=== PATIENT | female | born 1965 | race Caucasian/White ===

== ENCOUNTER 2021-05-26 16:37 | Inpatient (IN) | payer BC ==
[2021-05-26] MEDS ORDERED: HYDROmorphone 0.5 MG/0.5 ML SYRINGE IVP STA (16:58)
[2021-05-26] MEDS ORDERED: ACETAMINOPHEN IV (For NPO) 1,000 MG in EMPTY BAG 1 BAG IVPB ONE (16:58)
--- NOTE | 2021-05-26 16:58 | ED ---
General Adult HPI - General Chief complaint: Abdominal Pain Stated complaint: Abd Pain Time Seen by Provider: 05/26/21 16:50 Source: patient, EMS, RN notes reviewed, old records reviewed Mode of arrival: EMS Limitations: no limitations - History of Present Illness Initial comments: 55-year-old female, alert and well-appearing, presents to the emergency room transferred from [facility] for diverticulitis with perforation. She states that her abdominal pain started on and fever developed yesterday. She states the pain is 9 out of 10 and worse with movement. She denies any vomiting. She has a surgical history of hysterectomy and section. -: days(s) (3) Location: abdomen (right lower and mid lower) Radiation: non-radiation Severity scale (1-10): 9 Quality: sharp Consistency: constant Improves with: immobilization Worsens with: movement Associated Symptoms: fever/chills, loss of appetite - Related Data Home Medications Medication Instructions Recorded Confirmed ALPRAZolam [Xanax] 0.25 mg PO DAILY PRN 05/26/21 05/26/21 Cetirizine HCl [Zyrtec] 10 mg PO HS 05/26/21 05/26/21 FLUoxetine HCL [PROzac] 20 mg PO HS 05/26/21 05/26/21 Montelukast [Singulair] 10 mg PO HS 05/26/21 05/26/21 Allergies Allergy/AdvReac Type Severity Reaction Status Date / Time sulfabenzamide Allergy Rash/Hives Verified 05/26/21 17:29 Review of Systems ROS Statement: Those systems with pertinent positive or pertinent negative responses have been documented in the HPI. ROS Other: All systems not noted in ROS Statement are negative. Past Medical History Past Medical History: No Reported History History of Any Multi-Drug Resistant Organisms: None Reported Past Surgical History: No Surgical Hx Reported Past Psychological History: No Psychological Hx Reported Smoking Status: Never smoker Past Alcohol Use History: None Reported Past Drug Use History: None Reported General Exam Limitations: no limitations General appearance: alert, in no apparent distress Respiratory exam: Present: normal lung sounds bilaterally. Absent: respiratory distress, wheezes, rales, rhonchi, chest wall tenderness, accessory muscle use Cardiovascular Exam: Present: regular rate GI/Abdominal exam: Present: soft, tenderness (Lower abdominal), normal bowel sounds. Absent: distended Extremities exam: Present: normal capillary refill Back exam: Present: normal inspection, full ROM. Absent: tenderness, CVA tende rness (R), CVA tenderness (L), rash noted Neurological exam: Present: alert, oriented X3 Psychiatric exam: Present: normal affect, normal mood Skin exam: Present: warm, dry, normal color. Absent: cyanosis, diaphoretic, pallor Course Vital Signs 05/26/21 05/26/21 16:47 18:51 Temperature 102.3 F H 98.3 F Pulse Rate 95 Respiratory 18 Rate Blood Pressure 109/60 O2 Sat by Pulse 96 Oximetry Medical Decision Making - Medical Decision Making 55-year-old female, alert and well-appearing, presents to the emergency room transferred from [facility] for diverticulitis with perforation. She was given pain medication and Zosyn at their facility prior to transfer. I did speak with Dr. Grimaldo who accepted the admission. Patient was given additional pain medication. Vital signs are stable. Patient is resting comfortably. Disposition Clinical Impression: Diverticulitis, Bowel perforation Disposition: ADMITTED IP TO THIS [facility] Decision Date: 05/26/21 Decision Time: 17:43
[2021-05-26] MEDS ORDERED: ONDANSETRON 4 MG/2 ML VIAL IVP PRN (17:43)
[2021-05-26] MEDS ORDERED: NALOXONE 0.4 MG/ML 1 ML VIAL IV PRN (17:43)
[2021-05-26] MEDS ORDERED: HYDROmorphone 0.5 MG/0.5 ML SYRINGE IVP PRN (17:43)
--- NOTE | 2021-05-26 18:29 | XR ---
EXAMINATION TYPE: XR abdomen 1V DATE OF EXAM: 05/26/2021 6:13 PM INDICATION: Patient age:Female; 55 years old; Reason for study: ruptured diverticuli free air; COMPARISON: None. TECHNIQUE: One radiographic view of the abdomen was obtained. FINDINGS: The bowel gas pattern is nonspecific without dilated loops of small or large bowel. There i s no evidence for organomegaly or pneumoperitoneum. The osseous structures are intact. No abnormal calcifications are present. Fecal material and gas are demonstrated throughout the colon and rectum. Excreted IV contrast seen within the collecting system. Cholecystectomy clips are present. IMPRESSION: Nonspecific bowel gas pattern without radiographic evidence for acute process.
[2021-05-26] MEDS: HYDROmorphone 1 MG/ML 1 ML SYRINGE IVP PRN (20:43)
[2021-05-26] MEDS: SODIUM CHLORIDE 0.9% 1,000 ML IV SCH (20:47)
[2021-05-27] MEDS: HYDROmorphone 1 MG/ML 1 ML SYRINGE IVP PRN ×2 (02:46→11:43)
[2021-05-27] MEDS: SODIUM CHLORIDE 0.9% 1,000 ML IV SCH ×3 (04:21→18:17)
[2021-05-27] MEDS ORDERED: PIPERACILLIN-TAZOBACTAM 3.375 GM in SODIUM CHLORIDE 0.9% 100 ML IVPB ONE (10:30)
[2021-05-27] MEDS ORDERED: HYDROcodone/APAP 5-325MG 1 EACH TAB PO PRN (11:14)
[2021-05-27] MEDS ORDERED: IBUPROFEN 400 MG TAB PO PRN (11:14)
[2021-05-27] MEDS ORDERED: ACETAMINOPHEN TAB 325 MG TAB PO PRN (11:14)
--- NOTE | 2021-05-27 11:18 | P.GSHP ---
History of Present Illness H&P Date: 05/27/21 Chief Complaint: Diverticulitis 55-year-old female with a history of known diverticulosis started feeling lower abdominal discomfort and nausea on . Pain increased on Friday. She went to urgent care yesterday and was sent to the ER. CAT scan performed at outside institution shows diverticulitis with localized extraluminal air pocket consistent with perforation. Patient was transferred here. T-max 102.3 on arrival. No further fevers since then. Pain was initially 9 out of 10. Today it is down to a 3-4. She is having some intermittent loose stools. Last colonoscopy 3-4 years ago normal. - Review of Systems Comment: The patient denies any acute changes in vision or hearing, no dysphagia or odynophagia, no chest pain or shortness of breath, no dysuria or hematuria, no headache, no runny nose, no rectal bleeding or melena, no unexplained weight loss Past Medical History Past Medical History: No Reported History History of Any Multi-Drug Resistant Organisms: None Reported Past Surgical History: No Surgical Hx Reported Additional Past Anesthesia/Blood Transfusion Reaction / Comment(s): post op fever Past Psychological History: No Psychological Hx Reported Smoking Status: Never smoker Past Alcohol Use History: None Reported Past Drug Use History: None Reported Medications and Allergies Home Medications Medication Instructions Recorded Confirmed Type ALPRAZolam [Xanax] 0.25 mg PO DAILY PRN 05/26/21 05/26/21 History Cetirizine HCl [Zyrtec] 10 mg PO HS 05/26/21 05/26/21 History FLUoxetine HCL [PROzac] 20 mg PO HS 05/26/21 05/26/21 History Montelukast [Singulair] 10 mg PO HS 05/26/21 05/26/21 History Allergies Allergy/AdvReac Type Severity Reaction Status Date / Time sulfabenzamide Allergy Rash/Hives Verified 05/26/21 17:29 Surgical - Exam Vital Signs Temp Pulse Resp BP Pulse Ox 102.3 F H 95 18 109/60 96 05/26/21 16:47 05/26/21 16:47 05/26/21 16:47 05/26/21 16:47 05/26/21 16:47 Physical exam: General: Well-developed, well-nourished HEENT: Normocephalic, sclerae nonicteric Abdomen: Mild suprapubic and left lower quadrant tenderness, no rebound or guarding, nondistended Extremities: No edema Neuro: Alert and oriented Assessment and Plan (1) Diverticulitis Narrative/Plan: 55-year-old female with sigmoid diverticulitis with contained perforation. Continue to treat nonoperatively. Patient improving thus far. Continue IV antibiotics. Begin clear liquids. Repeat labs tomorrow. We'll consult hospitalist. Current Visit: Yes Status: Acute Code(s): K57.92 - DVTRCLI OF INTEST, PART UNSP, W/O PERF OR ABSCESS W/O BLEED SNOMED Code(s): 361627515
[2021-05-27] MEDS: HEPARIN SODIUM,PORCINE/PF 5,000 UNIT/0.5 ML SYRINGE SQ SCH ×2 (14:45→21:10)
[2021-05-27] MEDS: metroNIDAZOLE-NS PMX 500 MG in SALINE 1 100ML.BAG IVPB SCH ×2 (14:46→23:12)
--- NOTE | 2021-05-27 14:57 | P.CONS ---
History of Present Illness - Reason for Consult Consult date: 05/27/21 Medical management - Chief Complaint Abdominal pain - History of Present Illness Patient is a 55-year-old female with a known history of anxiety/depression, diverticulosis with history of colonoscopy about 2 years ago initially presented to [facility] with complaints of abdominal pain mainly in the lower abdomen started on . Patient has been having worsening pain and presented to ER on Friday morning. CT scan was done which showed diverticulitis with a localized extraluminal air pocket consistent with perforation. Patient was eventually transferred to [facility] for surgical evaluation. On admission patient was febrile with T-max of 102.3. Pulse ox 96% on room air and blood pressure 119/60. Laboratory data from the outside hospital was reviewed. Patient otherwise denied any complaints of chest pain or shortness of breath. No nausea vomiting or diarrhea. Denies any recent illnesses. No cough or sputum production. No leg swelling. No dysuria or hematuria. Review of Systems Constitutional: Patient denies any fever or chills . No generalized weakness or weight loss. Abdomen: Patient denied nausea vomiting and diarrhea. Patient does have lower abdominal pain. No diarrhea.. Cardiovascular: Patient denies any chest pain or short of breath no palpitations. Respiratory: patient denied any cough is from production. No shortness of breath Neurologic: Patient denied any numbness or tingling headache. Musculoskeletal: Patient denies any complaints of joint swelling or deformity. Skin: Negative Psychiatric: Negative Endocrine: No heat or cold intolerance. No recent weight gain. Genitourinary: No dysuria or hematuria. All other 14 point ROS negative except the above Past Medical History Past Medical History: No Reported History History of Any Multi-Drug Resistant Organisms: None Reported Past Surgical History: No Surgical Hx Reported Additional Past Anesthesia/Blood Transfusion Reaction / Comm: post op fever Past Psychological History: No Psychological Hx Reported Smoking Status: Never smoker Past Alcohol Use History: None Reported Past Drug Use History: None Reported Medications and Allergies Home Medications Medication Instructions Recorded Confirmed Type ALPRAZolam [Xanax] 0.25 mg PO DAILY PRN 05/26/21 05/26/21 History Cetirizine HCl [Zyrtec] 10 mg PO HS 05/26/21 05/26/21 History FLUoxetine HCL [PROzac] 20 mg PO HS 05/26/21 05/26/21 History Montelukast [Singulair] 10 mg PO HS 05/26/21 05/26/21 History Allergies Allergy/AdvReac Type Severity Reaction Status Date / Time sulfabenzamide Allergy Rash/Hives Verified 05/26/21 17:29 Physical Exam Vitals: Vital Signs Temp Pulse Pulse Resp BP BP Pulse Ox 05/27/21 10:00 97.9 F 73 18 121/71 98 05/27/21 02:00 98.1 F 74 18 99/61 96 05/26/21 20:00 98.2 F 70 18 96/58 96 05/26/21 18:51 98.3 F 05/26/21 16:47 102.3 F H 95 18 109/60 96 Intake and Output 05/26/21 05/27/21 05/27/21 22:59 06:59 14:59 Intake Total 0 Balance 0 Intake: Oral 0 Other: # Voids 2 # Bowel Movements 1 Weight 77.111 kg PHYSICAL EXAMINATION: Patient is lying in the bed comfortably, no acute distress, awake alert and oriented.. HEENT: Normocephalic. Neck is supple. Pupils reactive. Nostrils clear. Oral cavity is moist. Neck reveals no JVD, carotid bruits, or thyromegaly. CHEST EXAMINATION: Trachea is central. Symmetrical expansion. Lung lloyd clear to auscultation and percussion. CARDIAC: Normal S1, S2 with no gallops. No murmurs ABDOMEN: Soft. Bowel sounds present, mild lower abdominal tenderness. No guarding or rigidity.. No organomegaly. No abdominal bruits. Extremities: reveal no edema. No clubbing or cyanosis Neurologically awake, alert, oriented x3 with well-coordinated movements. No focal deficits noted Skin: No rash or skin lesions. Psychiatric: Coperative. Nonsuicidal Musculoskeletal: No joint swelling or deformity. Normal range of motion. Assessment and Plan Assessment: Acute diverticulitis with perforation Worsening lower abdominal pain secondary to above for the past 3 days prior to admission Diverticulosis history. Patient had a colonoscopy about 2 years ago. Anxiety/depression DVT prophylaxis with heparin subcu Plan: Patient will be continued on IV hydration and antibiotics in the form of Zosyn metronidazole. Continue with pain management and follow-up CBC and BMP. General surgery is on board. Patient is currently improving symptomatically. Will follow closely and further recommendations based on the clinical course. Thank you for your consult. Time with Patient: Greater than 30
[2021-05-27] MEDS: PIPERACILLIN-TAZOBACTAM 3.375 GM in SODIUM CHLORIDE 0.9% 100 ML IVPB SCH (16:07)
[2021-05-27] MEDS: FAMOTIDINE 20 MG/2 ML VIAL IV SCH (21:08)
[2021-05-28] MEDS: PIPERACILLIN-TAZOBACTAM 3.375 GM in SODIUM CHLORIDE 0.9% 100 ML IVPB SCH ×3 (00:31→16:07)
[2021-05-28] MEDS: SODIUM CHLORIDE 0.9% 1,000 ML IV SCH ×4 (02:37→20:42)
[2021-05-28] MEDS: HEPARIN SODIUM,PORCINE/PF 5,000 UNIT/0.5 ML SYRINGE SQ SCH ×3 (08:16→22:53)
[2021-05-28] MEDS: FAMOTIDINE 20 MG/2 ML VIAL IV SCH ×2 (09:10→20:41)
[2021-05-28] MEDS: metroNIDAZOLE-NS PMX 500 MG in SALINE 1 100ML.BAG IVPB SCH ×2 (09:11→16:07)
[2021-05-28 10:23] LABS: Anion Gap 12.7 mmol/L (10.00-18.00); Blood Urea Nitrogen 6.3 mg/dL (9.0-27.0); Calcium 8.3 mg/dL (8.7-10.3); Carbon Dioxide 19.3 mmol/L (20.0-27.5); Non-African American GFR(CKD) 97.5 (60.0-200.0); Potassium 4.1 mmol/L (3.5-5.5)
--- NOTE | 2021-05-28 12:31 | P.PN ---
<AnttoshaNettie - Last Filed: 05/28/21 12:28> Subjective Progress Note Date: 05/28/21 CHIEF COMPLAINT: Diverticulitis HISTORY OF PRESENT ILLNESS: Patient reports improvement in her abdominal pain. She describes her pain is very mild in the lower pelvic area. She has not required pain medicine. She is having bowel movements and flatus. Denies any nausea or vomiting. She would like abatement of her diet. Afebrile. CBC pending. Creatinine 0.7 PHYSICAL EXAM: VITAL SIGNS: Reviewed. GENERAL: Well-developed in no acute distress. HEENT: No sclera icterus. Extraocular movements grossly intact. Moist buccal mucosa. Head is atraumatic, normocephalic. ABDOMEN: Soft. Nondistended. Minimal tenderness in the mid lower abdominal area NEUROLOGIC: Alert and oriented. Cranial nerves II through XII grossly intact. ASSESSMENT: 1. Sigmoid diverticulitis with contained perforation PLAN: -Continue conservative management -Advance diet to full liquids -Continue IV fluids -Continue IV antibiotics -Continue pain medication as needed Physician Copyholder note has been reviewed by physician. Signing provider agrees with the documented findings, assessment, and plan of care. Objective - Vital Signs Vital signs: Vital Signs Temp 98.5 F 05/28/21 11:33 Pulse 64 05/28/21 11:33 Resp 18 05/28/21 11:33 BP 153/88 05/28/21 11:33 Pulse Ox 98 05/28/21 11:33 Intake & Output 05/27/21 05/28/21 05/28/21 18:59 06:59 18:59 Intake Total 3040 1900 Balance 3040 1900 Intake: Intake, IV Titration 1860 1340 Amount Piperacillin-Tazobactam 3 200 .375 gm In Sodium Chloride 0.9% 100 ml @ 200 mls/hr IVPB ONCE ONE Rx#:[id number] Piperacillin-Tazobactam 3 100 .375 gm In Sodium Chloride 0.9% 100 ml @ 25 mls/hr IVPB Q8HR [facility] Rx# :[id number] Sodium Chloride 0.9% 1, 1560 1140 000 ml @ 130 mls/hr IV . Q7H42M [facility] Rx#:[id number] metroNIDAZOLE-NS PMX 500 100 100 mg In Saline 1 100ml.bag @ 100 mls/hr IVPB Q8HR ANG Rx#:[id number] Oral 1180 560 Other: Voiding Method Toilet Toilet # Voids 3 # Bowel Movements 1 - Labs CBC & Chem 7: 05/28/21 06:03 Labs: Abnormal Lab Results - Last 24 Hours (Table) 05/28/21 Range/Units 06:03 Carbon Dioxide 19.3 L (20.0-27.5) mmol/L BUN 6.3 L (9.0-27.0) mg/dL BUN/Creatinine Ratio 9.00 L (12.00-20.00) Ratio Calcium 8.3 L (8.7-10.3) mg/dL <Ervin Grimaldo - Last Filed: 05/28/21 17:36> Subjective I have personally seen and examined the patient, reviewed the PLATEMAN /PAs history, exam and MDM and agree with the assessment and plan as written. Based on total visit time, I have performed more than 50% of the visit. As above: Patient feels better today. Pain is down to a 1 out of 10. Still having loose stools. No nausea or vomiting. Did feel somewhat bloated after full liquids for lunch. She is afebrile. White blood cell count normal. Continue antibiotics. Agree with full liquid diet. If doing well may consider discharge tomorrow with plans for gradual advancement of diet. Objective - Vital Signs Vital signs: Vital Signs Temp 98.5 F 05/28/21 11:33 Pulse 64 05/28/21 11:33 Resp 18 05/28/21 11:33 BP 153/88 05/28/21 11:33 Pulse Ox 98 05/28/21 11:33 Intake & Output 05/27/21 05/28/21 05/28/21 18:59 06:59 18:59 Intake Total 3040 1900 Balance 3040 1900 Intake: Intake, IV Titration 1860 1340 Amount Piperacillin-Tazobactam 3 200 .375 gm In Sodium Chloride 0.9% 100 ml @ 200 mls/hr IVPB ONCE ONE Rx#:[id number] Piperacillin-Tazobactam 3 100 .375 gm In Sodium Chloride 0.9% 100 ml @ 25 mls/hr IVPB Q8HR [facility] Rx# :[id number] Sodium Chloride 0.9% 1, 1560 1140 000 ml @ 130 mls/hr IV . Q7H42M [facility] Rx#:[id number] metroNIDAZOLE-NS PMX 500 100 100 mg In Saline 1 100ml.bag @ 100 mls/hr IVPB Q8HR [facility] Rx#:[id number] Oral 1180 560 Other: Voiding Method Toilet Toilet # Voids 3 # Bowel Movements 1 - Labs CBC & Chem 7: 05/28/21 06:03 05/28/21 06:03 Labs: Abnormal Lab Results - Last 24 Hours (Table) 05/28/21 05/28/21 Range/Units 06:03 06:03 RBC 3.55 L (4.10-5.20) X 10*6/uL Hgb 11.3 L (12.0-15.0) g/dL Hct 34.7 L (37.2-46.3) % MCV 97.7 H (80.0-97.0) fL Immature Gran # 0.05 H (0.00-0.04) X 10*3/uL Carbon Dioxide 19.3 L (20.0-27.5) mmol/L BUN 6.3 L (9.0-27.0) mg/dL BUN/Creatinine Ratio 9.00 L (12.00-20.00) Ratio Calcium 8.3 L (8.7-10.3) mg/dL Assessment and Plan (1) Diverticulitis Current Visit: Yes Status: Acute Code(s): K57.92 - DVTRCLI OF INTEST, PART UNSP, W/O PERF OR ABSCESS W/O BLEED SNOMED Code(s): 440840492
[2021-05-28 12:32] LABS: Basophils # (A) 0.04 X 10*3/uL (0.00-0.10); Basophils % (A) 0.6 %; Eosinophils # (A) 0.22 X 10*3/uL (0.04-0.35); Eosinophils % (A) 3.5 %; HCT 34.7 % (37.2-46.3); HGB 11.3 g/dL (12.0-15.0); Immature Grans, Automated 0.8 %; Lymphocytes # (A) 1.11 X 10*3/uL (0.90-5.00); Lymphocytes % (A) 17.5 %; MCH 31.8 pg (27.0-32.0); MCHC 32.6 g/dL (32.0-37.0); MCV 97.7 fL (80.0-97.0); Monocytes # (A) 0.64 X 10*3/uL (0.20-1.00); Monocytes % (A) 10.1 %; NRBC Per 100 WBC 0 /100 WBCS (0.0-0.0); Neutrophils % (A) 67.5 %; Platelet Count 244 X 10*3/uL (140-440); RBC 3.55 X 10*6/uL (4.10-5.20); WBC 6.36 X 10*3/uL (4.50-10.00)
[2021-05-28 12:33] LABS: Immature Platelet Fraction 5.8 % (1.1-6.1)
[2021-05-28] MEDS ORDERED: ALPRAZolam 0.25 MG TAB PO PRN (16:42)
--- NOTE | 2021-05-28 16:43 | P.PN ---
Progress Note - Text Progress Note Date: 05/28/21 - Chief Complaint Abdominal pain Hospital course Patient is a 55-year-old female with a known history of anxiety/depression, diverticulosis with history of colonoscopy about 2 years ago initially presented to [facility] with complaints of abdominal pain mainly in the lower abdomen started on . Patient has been having worsening pain and presented to ER on Friday morning. CT scan was done which showed diverticulitis with a localized extraluminal air pocket consistent with perforation. Patient was eventually transferred to [facility] for surgical evaluation. On admission patient was febrile with T-max of 102.3. Pulse ox 96% on room air and blood pressure 119/60. Laboratory data from the outside hospital was reviewed. Patient otherwise denied any complaints of chest pain or shortness of breath. No nausea vomiting or diarrhea. Denies any recent illnesses. No cough or sputum production. No leg swelling. No dysuria or hematuria. May 28: 7 down pain. Did pass some flatus and some slight stool. No naus ea vomiting. Lower abdominal pain. No fever no chills Active Medications Acetaminophen (Acetaminophen Tab 325 Mg Tab) 650 mg PO Q4HR PRN PRN Reason: Fever and/ or Pain Last Admin: 05/28/21 16:24 Dose: 650 mg Documented by: Hydrocodone Bitart/Acetaminophen (Hydrocodone/Apap 5-325mg 1 Each Tab) 1 each PO Q4HR PRN PRN Reason: Pain Famotidine (Famotidine 20 Mg/2 Ml Vial) 20 mg IV Q12HR [facility] Last Admin: 05/28/21 09:10 Dose: 20 mg Documented by: Heparin Sodium (Porcine) (Heparin Sodium,Porcine/Pf 5,000 Unit/0.5 Ml Syringe) 5,000 unit SQ Q8HR [facility] Last Admin: 05/28/21 13:56 Dose: Not Given Documented by: Hydromorphone HCl (Hydromorphone 1 Mg/Ml 1 Ml Syringe) 0.5 mg IVP Q3HR PRN PRN Reason: Moderate Pain Last Admin: 05/27/21 11:43 Dose: 0.5 mg Documented by: Sodium Chloride (Saline 0.9%) 1,000 mls @ 130 mls/hr IV .Q7H42M [facility] Last Admin: 05/28/21 16:30 Dose: Not Given Documented by: Piperacillin Sod/Tazobactam (Sod 3.375 gm/ Sodium Chloride) 100 mls @ 25 mls/hr IVPB Q8HR ANG; Protocol Last Admin: 05/28/21 16:07 Dose: 25 mls/hr Documented by: Metronidazole 500 mg/ IV (Solution) 100 mls @ 100 mls/hr IVPB Q8HR ANG; Protocol Last Admin: 05/28/21 16:07 Dose: 100 mls/hr Documented by: Ibuprofen (Ibuprofen 400 Mg Tab) 600 mg PO Q6HR PRN PRN Reason: Pain Naloxone HCl (Naloxone 0.4 Mg/Ml 1 Ml Vial) 0.2 mg IV Q2M PRN PRN Reason: Opioid Reversal Ondansetron HCl (Ondansetron 4 Mg/2 Ml Vial) 4 mg IVP Q8HR PRN PRN Reason: Nausea And Vomiting On examination: VITAL SIGNS: 97.8, 84, 18, 107/65, 97% room air GENERAL APPEARANCE: Sitting over the side of the bed, not in distress. HEENT: Normal external appearance of nose and ear. Oral cavity normal EYES: Pupils equal. Conjunctiva normal. NECK: JVD not raised. Mass not palpable. RESPIRATORY: Respiratory effort normal. Lungs clear to auscultation. CARDIOVASCULAR: First and second sounds normal. No edema. ABDOMEN: Lower abdominal tenderness, no guarding rigidity, no masses palpable. PSYCHIATRY: Alert and oriented x3. Mood and affect normal. INVESTIGATIONS, reviewed in the clinical context: White count 6. 311.3 platelets 244 potassium 4.1 creatinine 0.7 Assessment and plan: -Acute diverticulitis with perforation IV Flagyl, IV Zosyn. Clear liquid diet -Anxiety/depression Prozac 20 mg daily at bedtime, Xanax when necessary -Normocytic anemia, secondary to abscess Check iron profile. Continue with IV Zosyn and Flagyl. Diet advanced to full liquid by surgery. Encouraged to ambulate. Discussed with patient.
[2021-05-28] MEDS ORDERED: MONTELUKAST 10 MG TAB PO SCH (21:00)
[2021-05-28] MEDS ORDERED: FLUoxetine HCL 20 MG CAP PO SCH (21:00)
[2021-05-29] MEDS: PIPERACILLIN-TAZOBACTAM 3.375 GM in SODIUM CHLORIDE 0.9% 100 ML IVPB SCH ×2 (00:25→09:23)
[2021-05-29] MEDS: metroNIDAZOLE-NS PMX 500 MG in SALINE 1 100ML.BAG IVPB SCH ×2 (00:26→09:23)
[2021-05-29] MEDS: SODIUM CHLORIDE 0.9% 1,000 ML IV SCH (05:13)
[2021-05-29] MEDS: HEPARIN SODIUM,PORCINE/PF 5,000 UNIT/0.5 ML SYRINGE SQ SCH (09:22)
[2021-05-29] MEDS: FAMOTIDINE 20 MG/2 ML VIAL IV SCH (09:23)
[2021-05-29 09:51] LABS: Basophils # (A) 0.1 k/uL (0-0.2); Basophils % (A) 1 %; Eosinophils # (A) 0.1 k/uL (0-0.7); Eosinophils % (A) 2 %; HCT 35.8 % (34.0-46.0); Lymphocytes % (A) 25 %; MCH 32.9 pg (25.0-35.0); MCHC 33.4 g/dL (31.0-37.0); MCV 98.5 fL (80.0-100.0); Mean Platelet Volume 7.5; Monocytes # (A) 0.4 k/uL (0-1.0); Monocytes % (A) 9 %; Neutrophils # (A) 2.4 k/uL (1.3-7.7); Neutrophils % (A) 59 %; Platelet Count 356 k/uL (150-450); RBC 3.64 m/uL (3.80-5.40); RDW 12.3 % (11.5-15.5); WBC 4.1 k/uL (3.8-10.6)
[2021-05-29 11:40] VITALS: BP 148/86; PULSE 62; RESP 18; TEMP 98.3
--- NOTE | 2021-05-29 13:56 | P.DS ---
<Nettie Harrison - Last Filed: 05/29/21 13:54> Providers Expected date of discharge: 05/29/21 Hospital Course: Discharge diagnosis 1. Sigmoid diverticulitis with contained perforation treated conservatively Hospital course 55-year-old female with a history of known diverticulosis started feeling lower abdominal discomfort and nausea on . Pain increased on Friday. She went to urgent care yesterday and was sent to the ER. CAT scan performed at outside institution shows diverticulitis with localized extraluminal air pocket consistent with perforation. Patient was transferred here. T-max 102.3 on arrival. Patient treated conservatively with IV antibiotics. Patient has had no further fevers. Abdominal pain has improved. She has tolerated diet. She is up and ambulating. She is having bowel movements. Her white count is normal. She is stable for discharge. Please refer to chart for any further details. Physician Picture Copyist note has been reviewed by physician. Signing provider agrees with the documented findings, assessment, and plan of care. Patient Condition at Discharge: Stable Plan - Discharge Summary Discharge Rx Participant: Yes New Discharge Prescriptions: New metroNIDAZOLE [Flagyl] 500 mg PO QID #56 tab Amoxicillin/Potassium Clav [Augmentin 875-125 Tablet] 1 tab PO Q12HR 1 Days #28 tab Continue Montelukast [Singulair] 10 mg PO HS FLUoxetine HCL [PROzac] 20 mg PO HS Cetirizine HCl [Zyrtec] 10 mg PO HS ALPRAZolam [Xanax] 0.25 mg PO DAILY PRN PRN Reason: Anxiety Discharge Medication List ALPRAZolam [Xanax] 0.25 mg PO DAILY PRN 05/26/21 [History] Cetirizine HCl [Zyrtec] 10 mg PO HS 05/26/21 [History] FLUoxetine HCL [PROzac] 20 mg PO HS 05/26/21 [History] Montelukast [Singulair] 10 mg PO HS 05/26/21 [History] Amoxicillin/Potassium Clav [Augmentin 875-125 Tablet] 1 tab PO Q12HR 1 Days #28 tab 05/29/21 [Rx] metroNIDAZOLE [Flagyl] 500 mg PO QID #56 tab 05/29/21 [Rx] Follow up Appointment(s)/Referral(s): Ervin Grimaldo MD [Medical Doctor] - 06/13/21 1:10 pm Tom Lucas MD [Primary Care Provider] - 1-2 days (patient does not see this physician) Patient Instructions/Handouts: Diverticulitis (DC), Diverticulitis Diet (DC), Perforated Bowel (DC) Activity/Diet/Wound Care/Special Instructions: Advance diet as tolerated Discharge Disposition: HOME SELF-CARE <Ervin Grimaldo - Last Filed: 05/29/21 14:46> Providers Date of admission: 05/26/21 18:09 Attending physician: Ervin Grimaldo Consults: 05/27/21 12:46 Consult Physician Routine Consulting Provider: Pete Kelly Consult Reason/Comments: medical management, Dr Lucas patient Do you want consulting provider notified?: Already Contacted Primary care physician: Tom Lucas - Discharge Diagnosis(es) (1) Diverticulitis Current Visit: Yes Status: Acute Hospital Course: Patient doing well today. Pain is minimal. She would like to go home. White blood cell count is normal. Agree with discharge. Follow-up in 1-2 weeks.
[2021-05-29 14:59] VITALS: BMI 31.1
--- NOTE | 2021-05-29 23:26 | P.PN ---
Progress Note - Text Progress Note Date: 05/29/21 - Chief Complaint Abdominal pain Hospital course Patient is a 55-year-old female with a known history of anxiety/depression, diverticulosis with history of colonoscopy about 2 years ago initially presented to [facility] with complaints of abdominal pain mainly in the lower abdomen started on . Patient has been having worsening pain and presented to ER on Friday morning. CT scan was done which showed diverticulitis with a localized extraluminal air pocket consistent with perforation. Patient was eventually transferred to [facility] for surgical evaluation. On admission patient was febrile with T-max of 102.3. Pulse ox 96% on room air and blood pressure 119/60. Laboratory data from the outside hospital was reviewed. Patient otherwise denied any complaints of chest pain or shortness of breath. No nausea vomiting or diarrhea. Denies any recent illnesses. No cough or sputum production. No leg swelling. No dysuria or hematuria. May 28: 7 down pain. Did pass some flatus and some slight stool. No naus ea vomiting. Lower abdominal pain. No fever no chills May 29: Abdominal pain much improved. Having some liquid stools. No nausea vomiting. Did tolerate diet. Cleared by Dr. Olson for discharge. Questions answered. Add Augmentin and Flagyl for discharge. Soft diet. Questions answered Current medications reviewed On examination: VITAL SIGNS: 98.3, 62, 18, 148/86, 96% room air GENERAL APPEARANCE: Laying in bed, comfortable HEENT: Normal external appearance of nose and ear. Oral cavity normal EYES: Pupils equal. Conjunctiva normal. NECK: JVD not raised. Mass not palpable. RESPIRATORY: Respiratory effort normal. Lungs clear to auscultation. CARDIOVASCULAR: First and second sounds normal. No edema. ABDOMEN: No tenderness, no guarding rigidity, no masses palpable. PSYCHIATRY: Alert and oriented x3. Mood and affect normal. INVESTIGATIONS, reviewed in the clinical context: May 01: White count 4.1 hemoglobin 12 White count 6. 311.3 platelets 244 potassium 4.1 creatinine 0.7 Assessment and plan: -Acute diverticulitis with perforation IV Flagyl, IV Zosyn. Diet advanced. -Anxiety/depression Prozac 20 mg daily at bedtime, Xanax when necessary -Normocytic anemia, secondary to abscess Patient be discharged on Augmentin and Flagyl. Soft diet. Discussed with patient. Thank you Dr. Olson
== END 2021-05-29 14:50 | disposition home or self-care (01) | DRG 392 ==
LOC: EC 16:37 → 5NMEDONC 18:09
PROVIDERS: ADMIT Surgery; ATTEND Surgery
DX: K57.20 Diverticulitis of large intestine with perforation and abscess without bleeding (principal); D64.9 Anemia, unspecified; F32.A Depression, unspecified; F41.9 Anxiety disorder, unspecified; Z79.899 Other long term (current) drug therapy; Z90.710 Acquired absence of both cervix and uterus; Z88.2 Allergy status to sulfonamides
CPT/HCPCS: 74018; 80048; 85025; 96365; 96375; 99285